=== PATIENT | male | born 1970 | race Caucasian/White ===

== ENCOUNTER 2024-03-14 14:08 | Day surgery (SDC) | payer BC, SELFPAY ==
[2024-03-14] VITALS (13 sets, daily range): BP systolic 151–165; BP diastolic 77–110; PULSE 98–109; RESP 13–18; TEMP 36.7–37; O2SAT 94–97; BMI 34.2
--- NOTE | 2024-03-14 14:44 | ED_ITS ---
Discharge Plan Disposition Patient Disposition: Admitted Prescriptions Prescriptions: No Action No Known Home Medications Referrals Follow up/Referrals: Provider,Referral, [Primary Care Provider] - See instructions Clinical Impressions Clinical Impression: Food impaction of esophagus Qualifiers: Encounter type: initial encounter Qualified Code(s): T18.128A - Food in esophagus causing other injury, initial encounter Discharge ED Provider: Blade Vasquez General Adult HPI General Chief complaint: Recheck/Abnormal Lab/Rx Stated complaint: food stuck in throat Time Seen by Provider: 03/14/24 14:41 Mode of Arrival: Ambulatory Source of Information: Patient Limitations: No Limitations Description of Symptoms (Recalled from ER Triage Doc. by RN): pt presents to ED with c/o food being stuck in his throat. pt reports this am approx 0500 he was eating steak and felt like a piece got stuck in his throat. pt reports he has be en trying to drink water to get the food to move but has had no luck. pt reports hx of similar episodes History of Present Illness HPI narrative: Patient is a 53-year-old male presenting today with symptoms of an esophageal food bolus impaction. This has happened to him before in the past about 4 years ago this happened with pulled pork he was scoped by James Byrd had the food successfully removed and inflammatory changes were noted but he never followed up since that time has never had a diagnosis such as eosinophilic esophagitis etc. States that intermittently since that time he has been having intermittent obstructions but usually is able to get it to pass with drinking fluids which she is not able to today cannot even tolerate drinking water or his own spit. This happened earlier this morning while eating a T-bone steak. Related Data Home Medications Medication Instructions Recorded Confirmed No Known Home Medications 07/08/19 07/08/19 Allergies Allergy/AdvReac Type Severity Reaction Status Date / Time No Known Allergies Allergy Unverified 11/04/17 14:35 [facility] Disclaimer: The information contained in this section may have been updated after the patient was seen, as this information can be updated by other users. Social History Smoking Status: Current every day smoker alcohol intake: never current occupational status: employed Travel in the last 8 weeks: Inside the [place] ROS Obtained: Yes All systems reviewed & no additional complaints except as documented Physical Exam General General appearance: other (In no distress but spitting secretions) Respiratory Respiratory exam: Present normal lung sounds bilaterally Cardiovascular Cardiovascular exam: Present regular rate and normal rhythm Neurological Exam Neurological exam: Present alert and oriented X3 Medical Decision Making Álvaro Inquiry Pt receiving controlled substance: No Vital Signs: 03/14/24 14:09 Temperature 98.5 F Temperature Source Oral Pulse Rate [Left Radial] 100 H Respiratory Rate 13 Blood Pressure [Right Arm] 156/110 H Blood Pressure Mean [Right Arm] 125 02 Sat by Pulse Oximetry 96 Oxygen Delivery Method Room Air Medical Decision Narrative: Well-appearing 53-year-old male presents today with evidence of a complete obstruction from a steak causing esophageal food bolus impaction. I spoke with Dr. Saira Mcdowell with general surgery who will take the patient to the endoscopy/OR suite for surgical removal. Patient is aware of this and agreeable to this plan and admitted to the operating room in stable condition. Critical Care Critical Care Time Critical Care Time: Yes Attestation: On 03/14/24, the high probability of a clinically significant, sudden or life threatening deterioration of the following system(s) required my full and direct attention, intervention and personal management. The time I documented below is in addition to time spent performing reported procedures but includes the following listed in this critical care notation. Total Time Total Critical Care Time: 35
--- NOTE | 2024-03-14 14:47 | PC.NURSE ---
CALLED HOUSE TO LET HIM KNOW IS COMING IN TO TAKE PT TO OR FOR FOOD BOLLUS ETA 1 HOUR
--- NOTE | 2024-03-14 14:50 | PC.NURSE ---
PT CHANGED INTO TO BE READY FOR OR
--- NOTE | 2024-03-14 15:28 | PC.NURSE ---
contact information for patients ride after procedure Wilmna Frye [phone]
--- NOTE | 2024-03-14 17:05 | P.OP_ITS ---
Date of procedure: 03/14/24 Pre-op Diagnosis:: Esophageal food impaction Post-op Diagnosis:: 1. Esophageal food impaction 2. Mid-esophageal stricture Procedure performed:: Esophagogastroduodenoscopy with foreign body retreival Surgeon:: Saira Mcdowell MD HALL WORKER:: Cindy Sequeira Anesthesia: GETA Estimated blood loss (mL): 5 Clinical Note:: Mr. Kenton Aguirre is a 53 year old male who presented with 11 hours of impacted steak. He previously had endoscopy to retrieve impacted pork in [address] Allen, and also in 2016. The risks, benefits, and alternatives to the procedure were discussed with the patient, including but not limited to aspiration, perforation, bleeding, and other tissue trauma, and he gave informed consent. Operative findings:: Pale unmasticated meat bolus in the mid-esophagus with likely mid-esophageal stricture at 25 cm from incisors. Difficult intubation due to extremely anterior vocal cords and soft tissue swelling. Operative note:: After informed consent was taken, the patient was brought to the operating room and laid in the supine position. General anesthesia was induced, and intubation was started. There was quite a bit of soft tissue swelling already near the vocal cords, and they were quite anterior, rendering visualization extremely difficult. After several attemtps, he was eventually intubated with the aid of a [place] scope and a bougie. A bite block was placed. The flexible endoscope was passed transorally and at 25 cm from the incisors a pale, unmasticated food bolus was encountered. Attempt was made to move it distally with the scope, which was unsuccessful. Several bites of the bolus were removed piecemeal with a grasper. A net was unsuccessful. Having been somewhat reduced, I was able to push the bolus past what appeared to be a stricture at 25 cm. The bolus was pushed into the stomach. The scope was passed into the duodenum, which was normal. There was no pyloric spasm. The scope was retroflexed and the body, fundus, and cardia were examined and were normal. I could observed some thin, clear gastric fluid and the pale food bolus in the fundus. The esophagus was reexamined. There was some superficial mucosal trauma from retrieval attempts but no active bleeding. The scope passed easily past the 25 cm seymour, but it was narrower than the rest of the esophagus. Due to swelling and tissue trauma, the GE junction was indistinct and I could not identify its depth. The scope was brought into the oropharynx, and there was no visible food matter near the trachea. The scope was removed. The patient was extubated and taken to recovery in satisfactory condition. Recommendations: Liquids for 24 hours, soft diet thereafter. I verbalized to patient that he will need to follow up with Dr. Allen for an outpatient endoscopy. Condition: stable Disposition: same day Complications:: none immediate
--- NOTE | 2024-03-14 17:26 | EXP.ANES.CKL ---
[facility] Disclaimer: The information contained in this section may have been updated after the patient was seen, as this information can be updated by other users. Social History Smoking Status: Current every day smoker alcohol intake: never substance use type: denies use current occupational status: employed Travel in the last 8 weeks: Inside the [place] [facility] Anesthesia Checklist Patient Identification Patient Identification: Arm Band and Verbal (Name & ) Structural Data Admitted From: Emergency Dept Planned Operative Procedure/s: EGD w/retrieval of food bolus Consent for Planned Operative Procedure(s) Verified: Yes Verified Documents: Surgical Consent and History and Physical NPO Status Verified Time NPO: 14:00 (water) Chart Verification Results Verified: CBC and BMP Additional verifications Patient : No Anesthesia Reactions: No Hx Blood Transfusions: No Blood Transfusion Reaction: No Cardiovascular Assessment Heart Sounds: S1 & S2 Pulse Rhythm: Irregular Peripheral Edema: No Airway Assessment Mallampati Score:: Class III C-Spine Mobility Assessed: Yes (FROM) TMJ Mobility Assessed: Yes Dentition: Poor Dentition (Many missing teeth. Nothing loose per pt.) Neurological Assessment Level of Consciousness: Awake, Alert, Appropriate and Follows Commands Hx Seizures: No Numbness or tingling in extremities: No Anesthesia Plan Anesthesia Risk discussed: Yes Anesthesia Plan: Verified ASA Class: III (E) Anesthesia Type: General
--- NOTE | 2024-03-14 17:31 | P.PNANES_ITS ---
[facility] Anesthesia Record Part I Anesthesia Record I Intake, IV Amount: 1,300 Hydration: Adequate Estimated blood loss (mL): 5 Urine output (mL): 0 Blood Products used (#): none Blood Pressure: 160/98 SaO2: 94 Pulse Rate: 103 Airway Patency: Patent Respiratory Rate: 18 Temperature: 98.6 F Patient is:: Awake (Talking.) and Stable Stable to PACU at:: 17:20
--- NOTE | 2024-03-15 07:25 | P.PNANES_ITS ---
[facility] Anesthesia Record Part II Anesthesia Record Part II Discharge Time: 17:45 Destination: Surgical Day Care (OP Surgery) PACU nurse assessment reviewed?: Yes Patient Condition:: Good Anesthesia Complications:: None Swallowing reflex intact?: Yes Airway Patency: Patent Cyanosis?: No Blood Pressure: 165/81 SaO2: 94 Respiratory Rate: 16 Pulse Rate: 101 Temperature: 98.6 F Mental Status: Alert & Oriented Pain level:: 0 Nausea and/or vomitting:: None Intake, IV Amount: 1,300 Hydration: Adequate
[2024-03-15 07:26] VITALS: BP 165/81; PULSE 101; RESP 16; TEMP 37; O2SAT 94
== END 2024-03-14 18:15 | disposition home or self-care (01) ==
LOC: ER 16:06 → SDC 16:08
PROVIDERS: Emergency Provider Student in an Organized Health Care Education/Training Program; Visit Provider Surgery
PROC: (CPT 43247; principal; 2024-03-14 16:00)
DX: T18.128A Food in esophagus causing other injury, initial encounter (principal); K22.2 Esophageal obstruction
CPT/HCPCS: 43247; J3490; J0330

== ENCOUNTER 2024-04-30 08:40 | Outpatient (CLI) | payer BC, SELFPAY ==
--- NOTE | 2024-04-30 08:48 | FL_ITS ---
FINAL REPORT CLINICAL HISTORY: dysphagia DAP 741.50 1.14 min FINDINGS: ESOPHAGRAM HISTORY: Dysphagia. PROCEDURE: The patient ingested barium. Effervescent crystals were also administered. Fluoroscopic spot films were obtained. Number of images: 11 Fluoro time: 1 minute 14 seconds DAP: 741.50 uGym2. FINDINGS: The esophagus is normal. There is a small sliding-type hiatal hernia. A 13 mm barium tablet passes through the esophagus and stomach without delay. There is no gastroesophageal reflux. Peristalsis is normal. IMPRESSION: Small sliding-type hiatal hernia. Films reviewed , interpreted and dictated by Dr. Tao. Transcribed by Shivam Biggs PA-C. Reviewed, Interpreted and Dictated by Galen Tao III, MD Transcribed by HUNTER [place]ura Authenticated and [facility]
[2024-04-30] MEDS: BARIUM SULFATE(LIQUID E-Z-PAQUE);355ML BOTTLE 355 ML PO (09:13)
[2024-04-30] MEDS: E-Z-GASII EFFERVESCENT GRANULES;1PK 1 EACH PO (09:13)
[2024-04-30] MEDS: BARIUM SULFATE (E-Z-HD 340GM);135ML BOTTLE 135 ML PO (09:13)
== END 2024-04-30 23:59 | disposition home or self-care (01) ==
PROVIDERS: PCP Family Medicine; Visit Provider Surgery
DX: T18.128A Food in esophagus causing other injury, initial encounter (principal); Z98.890 Other specified postprocedural states
CPT/HCPCS: 74220